=== PATIENT | male | born 1950 | race Caucasian/White ===

== ENCOUNTER 2017-10-18 15:09 | Emergency (ER) | payer OTHER ==
--- NOTE | 2017-10-18 15:51 | RAD ---
CHEST 1 VIEW: Date: 10/18/17 HISTORY: 67-year-old male with history of cough for 4 days. Chest pain, fever, and tachycardia. COMPARISON: 11/30/16. FINDINGS: Postop midline sternotomy. Monitor leads overlie the chest. Mild increased linear and interstitial ma rkings bilaterally, evidence for some chronic change, but no confluent pneumonia, overt edema, pleura l effusion, or other acute process. IMPRESSION: No acute intrathoracic disease. No evidence for pneumonia. POS: C
[2017-10-18 15:58] LABS: Hemoglobin 14.8 g/dL (14.0-18.0); Mean Corpuscular HGB CONC 32.8 g/dL (32.0-36.0); Mean Corpuscular Hemoglobin 27.5 pg (27.0-31.0); Mean Corpuscular Volume 83.9 fl (80.0-94.0); Mean Platelet Volume 9.2 fL (7.4-10.4); Platelet Count 169 thou/uL (130-400); RBC Distribution Width 13.8 % (11.5-14.5); Red Blood Cell (RBC) Count 5.39 mill/uL (4.70-6.10); White Blood Cell (WBC) Count 11.6 thou/uL (4.8-10.8)
[2017-10-18 16:08] LABS: Lactic Acid 3.5 mmol/L (0.5-2.2)
[2017-10-18 16:17] LABS: ALT (SGPT) 20 U/L (8-55); AST (SGOT) 17 U/L (5-34); Albumin 4.2 g/dL (3.4-4.8); Alkaline Phosphatase 114 U/L (40-150); Anion Gap 17 mmol/L (10-20); BUN (Urea Nitrogen) 20 mg/dL (8.4-25.7); Bilirubin, Total 0.8 mg/dL (0.2-1.2); CK (CPK) 115 U/L (30-200); Calc. Creatinine Clearance 0 mL/min (70-130); Carbon Dioxide 21 mmol/L (23-31); Chloride 105 mmol/L (98-107); Estimated GFR-MDRD 40; Globulin 3.5 g/dL (2.4-3.5); Glucose 218 mg/dL (80-115); Potassium 3.9 mmol/L (3.5-5.1); Protein, Total 7.7 g/dL (5.8-8.1); Sodium 139 mmol/L (136-145)
[2017-10-18 16:18] LABS: CKMB 1.9 ng/mL (0-6.6); Troponin I 0.021 ng/mL (< 0.028)
[2017-10-18] MEDS ORDERED: Ibuprofen 200 MG TAB ONE (16:28)
[2017-10-18] MEDS ORDERED: cefTRIAXone\\ROCEPHIN 2 GM VIAL ONE (16:28)
[2017-10-18 16:32] LABS: Bilirubin Negative (Negative); Blood, Urine Moderate (Negative); Clarity CLOUDY (Clear); Glucose, Urine (Dipstick) 100 mg/dL (Negative); Leukocyte Large (Negative); Nitrite Positive (Negative); Protein, Urine (Dipstick) 300 mg/dL (Neg-Trace); Specific Gravity, Urine 1.015 (1.002-1.036)
[2017-10-18 16:35] LABS: Band 7 % (5-11); Lymphocytes 3 % (21-51); MDiff Complete? YES; Monocytes 2 % (0-10); Neutrophil 88 % (42-75); PLT Morphology Comment Appears Adequate
[2017-10-18 16:37] LABS: Bacteria/HPF 4+ HPF (None Seen); Hyaline Casts/LPF 0-3 HYALINE CAST LPF (0-3 Hyaline); Pathc Cast-AUWi Flag 0.29 (0-2.49); Squamous Epithelial 0-3 HPF (0-3); Yeast-AUWi Flag 72.4 (0-25.0)
[2017-10-18 16:56] LABS: Yeast-All Forms None Seen HPF (None Seen)
== END 2017-10-18 19:31 | disposition short-term general hospital (02) ==
LOC: ERS 15:09
DX: A41.9 Sepsis, unspecified organism (principal); N39.0 Urinary tract infection, site not specified; I25.10 Atherosclerotic heart disease of native coronary artery without angina pectoris; E11.40 Type 2 diabetes mellitus with diabetic neuropathy, unspecified; E03.9 Hypothyroidism, unspecified; E11.22 Type 2 diabetes mellitus with diabetic chronic kidney disease; I12.9 Hypertensive chronic kidney disease with stage 1 through stage 4 chronic kidney disease, or unspecified chronic kidney disease; N18.9 Chronic kidney disease, unspecified; Z79.899 Other long term (current) drug therapy; Z79.4 Long term (current) use of insulin; Z79.82 Long term (current) use of aspirin
CPT/HCPCS: 36415; 51702; 71045; 80053; 81003; 81015; 82550; 82553; 83605; 84484; 85025; 87040; 87077; 87086; 87186; 93005; 96361; 96365; 96366; 96367; 96368; J0696; J1580; J3370; J7050